=== PATIENT | male | born 1950 | race American Indian/Alaskan Native ===

== ENCOUNTER 2016-11-28 19:44 | Emergency (ER) | payer MEDICAID ==
[2016-11-28 20:42] LABS: Basophils % (Auto) 1.4 % (0.0-1.8); Eosinophils % (Auto) 2.7 % (0.0-4.3); Hematocrit 41.8 % (35.5-45.6); Hemoglobin 13.2 gm/dl (11.8-15.2); Mean Corpuscular HGB Conc 32 % (32-34); Mean Corpuscular Hemoglobin 28 pg (28-32); Mean Corpuscular Volume 90 fl (84-94); Platelet Count 364 K/mm3 (140-440); Red Blood Count 4.67 M/mm3 (3.65-5.03); Red Cell Distribution Width 15.3 % (13.2-15.2); White Blood Count 7.3 K/mm3 (4.5-11.0)
[2016-11-28 20:52] LABS: Partial Thromboplastin Time 28.5 Sec. (24.2-36.6)
[2016-11-28 21:01] LABS: Anion Gap 19 mmol/L; BUN/Creatinine Ratio 16.25; Blood Urea Nitrogen 13 mg/dL (9-20); Calcium 8.9 mg/dL (8.4-10.2); Carbon Dioxide 24 mmol/L (22-30); Glucose 144 mg/dL (75-100); Potassium 4.1 mmol/L (3.6-5.0); Sodium 142 mmol/L (137-145)
[2016-11-29] MEDS ORDERED: TYLENOL PO ONE (00:47)
[2016-11-29] MEDS ORDERED: TYLENOL ONE (00:52)
[2016-11-29] MEDS ORDERED: LASIX PO ONE (10:35)
[2016-11-29] MEDS ORDERED: LOPRESSOR PO ONE (10:35)
[2016-11-29] MEDS ORDERED: ASPIRIN PO ONE (10:36)
[2016-11-29] MEDS ORDERED: PEPCID PO ONE (10:36)
--- NOTE | 2016-11-29 10:38 | XRay Report ---
CHEST TWO VIEWS: 11/29/16 CLINICAL: Chest pain. COMPARISON: None FINDINGS: The heart is large. Normal pulmonary vessels. The lungs are underexpanded and clear except for mild bibasal subsegmental atelectasis.The bones and soft tissues are unremarkable. IMPRESSION: Cardiomegaly but no CHF. Mild basal subsegmental atelectasis.
--- NOTE | 2016-11-29 10:41 | Emergency Department Report ---
ED Chest Pain HPI - General Chief Complaint: Chest Pain Stated Complaint: cp right sided comes and goes for months. seen at [facility] for same. Time Seen by Provider: 11/29/16 10:14 Source: patient, RN notes reviewed Mode of arrival: Wheelchair Limitations: No Limitations - History of Present Illness -: Gradual, month(s) Onset: during rest, during exertion, awoke with symptoms (has gerd), other (no etoh in years) Pain Location: right chest, epigastric Pain Radiation: none Severity scale (0 -10): 7 Quality: sharp Consistency: intermittent, now resolved Improves With: antacids ( told him his zantac needed changed but never changed it) Worsens With: eating (some foods "like chips") re: dyspnea (states always "winded I'm fat"). denies: nausea, vomting, diaphoresis Other Symptoms: denies: cough, fever, syncope, rash, acid taste in mouth, leg swelling, palpitations, burping Treatments Prior to Arrival: aspirin, other (takes home meds daily) - Related Data On Oral Contraceptives: No Previous Rx's Medication Instructions Recorded Last Taken Type Famotidine [Pepcid] 20 mg PO BID #60 tablet 11/29/16 Unknown Rx Allergies Allergy/AdvReac Type Severity Reaction Status Date / Time ibuprofen [From Motrin] Allergy Unknown Verified 11/28/16 20:15 Heart Score - HEART Score History: Slightly suspicious EKG: Normal Age: > 65 Risk factors: 1-2 risk factors (obese, htn) Troponin: < normal limit HEART Score: 3 ED Review of Systems ROS: Stated complaint: SOB, CHESTPAIN Other details as noted in HPI Comment: Unobtainable due to pts medical conditions Constitutional: no symptoms reported, see HPI. denies: chills, diaphoresis, fever, malaise, weakness Eyes: as per HPI. denies: eye pain, eye discharge, vision change ENT: as per HPI. denies: ear pain, throat pain, dental pain, hearing loss Respiratory: no symptoms reported, see HPI, SOB with exertion (obese states always winded). denies: cough, orthopnea, shortness of breath, SOB at rest, stridor Cardiovascular: as per HPI, chest pain. denies: palpitations, dyspnea on exertion, orthopnea (lying flat on stretcher wo diff), edema, syncope, paroxysmal nocturnal dyspnea Endocrine: no symptoms reported, see HPI. denies: excessive sweating, flushing , intolerance to cold, intolerance to heat, increased hunger, increased thirst, increased urine, unexplained weight gain, unexplained weight loss Gastrointestinal: as per HPI, abdominal pain (epigastric hx gerd). denies: nausea, vomiting Genitourinary: as per HPI. denies: urgency, dysuria Musculoskeletal: as per HPI. denies: back pain Skin: as per HPI. denies: rash, lesions Neurological: as per HPI. denies: headache, weakness Psychiatric: as per HPI. denies: anxiety, depression Hematological/Lymphatic: as per HPI. denies: easy bleeding ED Past Medical Hx - Past Medical History Previous Medical History?: Yes Hx Hypertension: Yes Hx CVA: No Hx Heart Attack/AMI: No Hx Congestive Heart Failure: No Hx Diabetes: No Hx Deep Vein Thrombosis: No Hx Pulmonary Embolism: No Hx GERD: Yes Hx Liver Disease: No Hx Renal Disease: No Hx of Cancer: No Hx Sickle Cell Disease: No Hx Arthritis: No Hx Headaches / Migraines: No Hx Seizures: No Hx Kidney Stones: No Hx Psychiatric Treatment: No Hx Asthma: No Hx COPD: No Hx Tuberculosis: No Hx Dementia: No Hx HIV: No Additional medical history: A FIB- cvr on asa - Surgical History Past Surgical History?: Yes Additional Surgical History: appy - Family History Family history: no significant, other (dad dec etoh; mom dec ?) - Social History Smoking Status: Former Smoker Substance Use Type: None Other Social History: lives w sister - Medications Home Medications: Home Medications Medication Instructions Recorded Confirmed Last Taken Type Famotidine [Pepcid] 20 mg PO BID #60 tablet 11/29/16 Unknown Rx ED Physical Exam - General Limitations: No Limitations General appearance: alert, in no apparent distress - Head Head exam: Present: atraumatic - Eye Eye exam: Present: PERRL Pupils: Present: normal accommodation - ENT ENT exam: Present: normal exam, mucous membranes moist, TM's normal bilaterally - Neck Neck exam: Present: normal inspection. Absent: tenderness, meningismus - Respiratory Respiratory exam: Present: normal lung sounds bilaterally, chest wall tenderness , decreased breath sounds (bases). Absent: respiratory distress, wheezes, rales , rhonchi, stridor, accessory muscle use, prolonged expiratory - Cardiovascular Cardiovascular Exam: Present: regular rate, normal rhythm, irregular rhythm, normal heart sounds, other (no jvd or pedal edema). Absent: bradycardia, tachycardia, systolic murmur, diastolic murmur, rubs, gallop, clicks, JVD, S3, S4 - GI/Abdominal GI/Abdominal exam: Present: soft, normal bowel sounds, other (obese). Absent: distended, tenderness, guarding, rebound, rigid, diminished bowel sounds, hyperactive bowel sounds, hypoactive bowel sounds, organomegaly, mass, bruit, pulsatile mass, hernia - Rectal Rectal exam: Present: deferred - Extremities Exam Extremities exam: Present: normal inspection. Absent: full ROM, tenderness - Back Exam Back exam: Present: normal inspection, full ROM. Absent: tenderness, CVA tenderness (R) - Neurological Exam Neurological exam: Present: alert, oriented X3, CN II-XII intact, normal gait, reflexes normal - Psychiatric Psychiatric exam: Present: normal affect, normal mood. Absent: depressed, agitated, anxious, flat affect, manic, homicidal ideation - Skin Skin exam: Present: warm, dry, intact, normal color. Absent: rash, cyanosis, diaphoretic, erythema, urticaria, vesicles ED Course Vital Signs 11/28/16 11/29/16 11/29/16 20:15 00:08 04:32 Temperature 97.8 F 98.1 F 98.7 F Pulse Rate 81 74 58 L Respiratory 20 18 18 Rate Blood Pressure 125/74 119/82 158/109 Blood Pressure [Left] O2 Sat by Pulse 97 96 95 Oximetry 11/29/16 11/29/16 08:49 08:54 Temperature Pulse Rate 79 Respiratory 22 Rate Blood Pressure Blood Pressure 151/75 [Left] O2 Sat by Pulse 94 Oximetry - Reevaluation(s) Reevaluation #1: 11/29/16 10:45 to er w atypical cp via ems here several hours 3 neg trop and unchanged 12 lead sees pcp at [facility] has had heart eval and he states they told him it was ok he does have gerd afib cvr asa daily no coumadin no tachy no sob no hypoxia morbidly obese pain off and on for months r chest, high near shoulder gerd w some foods; was to change his zantac and did not taking po no n/v/d or diaphoresis. no jvd or pedal edema. Discussed with Dr Cedeno. BP on [id number]- did not take AM meds. HR 80's. RA sat 97% home meds lopressor zantac lasix asa ultram PAUL score - Paul Score Age > 65: (1) Yes Aspirin use within the Past 7 Days: (1) Yes 3 or more CAD Risk Factors: (0) No 2 or more Angina events in past 24 hrs: (0) No Known CAD with more than 50% Stenosis: (0) No Elevated Cardiac Markers: (0) No ST Deviation Greater than 0.5mm: (0) No PAUL Score: 2 ED Medical Decision Making - Lab Data Result diagrams: 11/28/16 20:26 11/28/16 20:26 - EKG Data -: EKG Interpreted by Me () - EKG Data When compared to previous EKG there are: previous EKG unavailable, other (afib cvr) Interpretation: no acute changes, other (afib a/c) - Radiology Data Radiology results: report reviewed, image reviewed interpreted by me: cm - Medical Decision Making trop x 3 neg ekg x 3 no change a/c cp atypical r sided; hx gerd chest xray cmeg no chf; hx htn taking meds for afib per rx - Differential Diagnosis ro acs v gerd v non cardiac chest wall pain Critical care attestation.: If time is entered above; I have spent that time in minutes in the direct care of this critically ill patient, excluding procedure time. ED Disposition Clinical Impression: GERD (gastroesophageal reflux disease), Chest pain, Afib, Obesity Disposition: - TO HOME OR SELFCARE Is pt being admited?: No Does the pt Need Aspirin: Yes Condition: Stable Instructions: Chest Pain (ED) Additional Instructions: take meds per routine- we gave you home doses for this am STOP THE ZANTAC AND START THE PEPCID WE HAVE GIVEN YOU TODAY follow up pcp we have given you local names work on weight loss low fat diet follow up cardiology local as we discussed Referrals: NATHAN OLIVEIRA MD [Staff Physician] - 3-5 Days SMILEY GARZA MD [Staff Physician] - 3-5 Days Time of Disposition: 10:54
[2016-11-29 11:12] VITALS: BP 134/96
== END 2016-11-29 11:33 | disposition home or self-care (01) ==
LOC: ED 19:44
DX: K21.9 Gastro-esophageal reflux disease without esophagitis (principal); I48.91 Unspecified atrial fibrillation; R07.9 Chest pain, unspecified; E66.9 Obesity, unspecified; I10 Essential (primary) hypertension
CPT/HCPCS: 36415; 71020; 80048; 84484; 85025; 85610; 85730; 93005; 93010